=== PATIENT | male | born 1995 | race Two or more races ===

== ENCOUNTER 2017-11-02 11:18 | Emergency (ER) | payer MEDICAID ==
--- NOTE | 2017-11-02 11:35 | EDPHY ---
H & P Stated Complaint: R foot pain x couple wks because he's walking a lot,homeless, needs pain med Time Seen by Provider: 11/02/17 11:34 HPI/ROS: HPI: This is a 22-year-old male who presents with Chief Complaint: R foot pain x couple wks because he's walking a lot,homeless, needs pain med Location: Right great toe Quality: Burning Pain Duration: Mobile of weeks Signs and Symptoms: No bleeding, no radiation, no numbness, no weakness, no tingling, no incontinence, no decreased range of motion, no swelling, + pain Timing: Daily Severity: Moderate Context: Patient reports that 2 years ago he was using IV heroin accidentally stepped on a needle which cause gangrene subsequent amputation of his toe. He since today with complaints of burning pain that is worse at night for the last several weeks. He reports that he is homeless, wears converse shoes, and recently walk from [place] 25 miles with his brother. He denies any fever/ drainage/skin color changes. He does report that the skin with amputation is is a little bit moist. Denies paresthesias/weakness. No primary care provider. Reports that he is drug free at this time. Modifying Factors: None Comment: ROS: see HPI Constitutional: No fever, no chills, no weight loss Eyes: No blurred vision Respiratory: No shortness of breath, no cough Cardiovascular: No chest pain Gastrointestinal: No nausea, no vomiting no diarrhea Genitourinary: No dysuria Extremities: No myalgias Neurologic: No weakness, no numbness Skin: No rashes Hematologic: No bruising, no bleeding MEDICAL/SURGICAL/SOCIAL HISTORY: Medical history: Rhabdomyolysis, past hx IV drug abuse Surgical history: Right big toe amputation Social history: Homeless. Support system of brother. CONSTITUTIONAL: Pleasant and cooperative young adult male, awake and alert, no obvious distress HEENT: Atraumatic and normocephalic. NECK: supple, no midline tenderness, flexion 45 degrees, extension 45 degrees, right and left lateral flexion 45 degrees. No meningismus. Cardiovascular: Normal S1/S2, regular rate, regular rhythm, without murmur rub or gallop. PULMONARY/CHEST: Symmetrical and nontender. no crepitus. Clear to auscultation bilaterally. Good air movement. No accessory muscle usage. ABDOMEN: Soft, nondistended, nontender, no ecchymosis. PELVIC: no pain with rocking; bilateral hips flexion 125 degrees, extension 30 degrees, with no pain internal rotation and no pain external rotation. BACK: No midline tenderness, no paraspinous spasm, deep tendon reflexes 2/2, no pain with straight leg raise EXTREMITIES: 2/2 pulses, strength 5/5, 5th toe amputation; skin is well- approximated with Santiago mild macerations; no discharge/erythema/warmth. DIP/PIP/ MCP flexion/extension intact with good light touch sensation. no deformities, no clubbing, no cyanosis or edema. NEUROLOGICAL: no focal neuro deficits. GCS 15. Light touch sensation intact. SKIN: Warm and dry, no erythema. no rash. Good capillary refill. Source: Patient Exam Limitations: No limitations - Personal History Current Tetanus Diphtheria and Acellular Pertussis (TDAP): Yes - Medical/Surgical History Other PMH: Amputation R big toe. rhabdo. past hx IV drug abuse - Social History Smoking Status: Never smoked Constitutional: Initial Vital Signs Temperature (C) 37.6 C 11/02/17 11:20 Heart Rate 77 11/02/17 11:20 Respiratory Rate 16 11/02/17 11:20 Blood Pressure 135/78 H 11/02/17 11:20 O2 Sat (%) 96 11/02/17 11:20 O2 Delivery Mode Room Air Allergies/Adverse Reactions: heparin Allergy (Severe, Verified 11/02/17 11:23) Anaphylaxis morphine Allergy (Severe, Verified 11/02/17 11:23) Anaphylaxis Home Medications: Medication Instructions Recorded Cephalexin [Keflex (*)] 500 mg PO TID #21 cap 11/02/17 Gabapentin [Neurontin 300 MG (*)] 300 mg PO HS #12 cap 11/02/17 Medical Decision Making ED Course/Re-evaluation: Local wound care provided; area clean with mild soap and water; patted dry; clean sterile dressing, Coban applied. Given Gabapentin as well as script for Keflex secondary to skin maceration; homelessness; risk for infection. Advised to establish care with primary care provider at [facility]. No signs of neurovascular compromise/tenting of skin/compartment syndrome/ extremities and joints examined above and below area of concern and are neurovascularly intact/cellulitis/abscess/gangrene/candidiasis. This patient was seen under the supervision of my secondary supervising physician. I evaluated care for this patient independently. Differential Diagnosis: Differential diagnosis includes but is not limited to phantom pain, drug- seeking behavior, peripheral neuropathy, cellulitis, skin breakdown. - Data Points Medications Given: Discontinued Medications Gabapentin (Neurontin) 300 mg PO EDNOW ONE Stop: 11/02/17 11:51 Last Admin: 11/02/17 11:53 Dose: 300 mg Departure - Departure Disposition: Home, Routine, Self-Care Clinical Impression: History of amputation of great toe, Maceration of skin Condition: Good Instructions: Peripheral Neuropathy (ED) Additional Instructions: Keep the dressing dry and in place for 48 hours. After 48 hours, you may remove the dressing; wash the site daily with mild soap and water; then pat dry; apply topical antibiotic ointment and clean sterile dressing. Take Tylenol 650 mg every 4 hours and/or Ibuprofen 600 mg every 8 hours with food as needed for pain. Take Gabapentin at bedtime for nerve pain. Wear proper fitting shoes when walking long distance. Establish care at [facility]. Referrals: [facility],. [Clinic] - As per Instructions Prescriptions: Cephalexin [Keflex (*)] 500 mg PO TID #21 cap Gabapentin [Neurontin 300 MG (*)] 300 mg PO HS #12 cap
[2017-11-02] MEDS ORDERED: GABAPENTIN 300 MG CAP PO ONE (11:50)
[2017-11-02] MEDS ORDERED: GABAPENTIN 300 MG CAP ONE (11:50)
[2017-11-02 12:17] VITALS: BP 128/78; PULSE 78; RESP 18; TEMP 98.6; O2SAT 95
== END 2017-11-02 12:24 | disposition home or self-care (01) ==
DX: T69.021A Immersion foot, right foot, initial encounter (principal); Z89.411 Acquired absence of right great toe; X31.XXXA Exposure to excessive natural cold, initial encounter

== ENCOUNTER 2017-11-07 14:55 | Inpatient (IN) | payer MEDICAID ==
[2017-11-07] MEDS ORDERED: GADOBUTROL 10 ML VIAL IVP ONE (16:51)
[2017-11-07 17:12] LABS: PLATELET COUNT 429 10^3/uL (150-400)
--- NOTE | 2017-11-07 17:17 | EDPHY ---
H & P Smoking Status: Current some day smoker Time Seen by Provider: 11/07/17 15:37 HPI/ROS: CHIEF COMPLAINT: Right foot pain. HISTORY OF PRESENT ILLNESS: 22-year-old male presents to the emergency department with concerns about ongoing pain in his right foot. He has a history of amputation in the right great toe 3 or 4 years ago. He has had ongoing pain for years in his right foot. He apparently walked a long ways from [place] to [place] and developed a soft tissue infection. He was seen in the emergency department on 11/02/2017 and started on Keflex. He took the antibiotic as prescribed. He now has an open wound that has been present there for the last week or so. He believes his tetanus shot is current. Denies any other trauma or injury. ROS: Denies fever, chills, pain in his right ankle or calf. (FernandoElif Lizette) Past Medical/Surgical History: Schizophrenia, substance abuse, rhabdomyolysis, amputation right great toe 4 years ago (YanirareynaElif M) Social History: Homeless (Urmila Kingrina Lizette) Physical Exam: On examination patient has amputation of the right great toe noted. There is an open wound at the very distal aspect of the right foot overlying the 1st MTP joint. Nontender to palpate. No drainage noted. There is no surrounding redness or lymphangitis. The other toes do not appear affected. He has full range of motion of his ankle. Patient has overall decreased sensation with light touch to the right foot. Strong dorsalis pedis pulse on the dorsal aspect of the right foot. (Urmila Kingrina Lizette) Constitutional: Initial Vital Signs Heart Rate 88 11/07/17 15:01 Respiratory Rate 16 11/07/17 15:01 Blood Pressure 126/76 H 11/07/17 15:01 O2 Sat (%) 97 11/07/17 15:01 O2 Delivery Mode Room Air Allergies/Adverse Reactions: heparin Allergy (Severe, Verified 11/02/17 11:23) Anaphylaxis morphine Allergy (Severe, Verified 11/02/17 11:23) Anaphylaxis Home Medications: Medication Instructions Recorded Gabapentin [Neurontin 300 MG (*)] 300 mg PO HS #12 cap 11/02/17 Cyanocobalamin [Vitamin B12 (*)] 2,000 mcg PO HS 11/07/17 Hext-3 Fatty Acids [Fish Oil 1000 2,000 mg PO HS 11/07/17 mg (*)] MDM/Departure - MDM Imaging: I viewed and interpreted images myself - MDM Medications Given: Acetaminophen (Tylenol) 650 mg PO Q4HRS PRN PRN Reason: Pain, Mild/Fever, Can Take PO Stop: 05/06/18 19:28 Last Admin: 11/08/17 18:07 Dose: 650 mg Gabapentin (Neurontin) 300 mg PO HS ALLI Stop: 05/06/18 20:59 Last Admin: 11/08/17 19:59 Dose: 300 mg Ibuprofen (Motrin) 400 mg PO Q4HRS PRN PRN Reason: Pain, Inflammatory Stop: 05/06/18 19:28 Last Admin: 11/08/17 19:58 Dose: 400 mg Discontinued Medications Lorazepam (Ativan) 1 mg PO ONCE ONE Stop: 11/08/17 18:20 Last Admin: 11/08/17 18:25 Dose: 1 mg ED Course/Re-evaluation: I took over care of this patient at 5:00 p.m.. We were awaiting the results of an MRI of the foot to evaluate for osteomyelitis. 6:45 p.m., results of MRI as noted above discussed with the patient. Need for IV antibiotics and admission discussed. Hospitalist paged. 7:00 p.m., spoke with Dr. Wendie Dorsey of the hospitalist service. Case discussed with her in detail. She accepts the patient for admission. She will consult with Infectious Disease prior to administration of IV antibiotics. ( Tena Foote) 22-year-old homeless male presents to the emergency department with ongoing pain in his right foot. He is status post amputation. He does have an open wound at the very distal aspect at the 1st MTP joint. I was concerned about possible osteomyelitis. X-ray was obtained which revealed possible osteomyelitis in the 2nd metatarsal head. MRI of the right foot has been ordered and is pending. Case was discussed with Dr. Tena Foote, secondary supervising physician, who will assume care of this patient. MRI is pending. (Elif King) - Depart Disposition: [facility] Clinical Impression: Osteomyelitis of right foot Qualifiers: Osteomyelitis type: unspecified type Qualified Code(s): M86.9 - Osteomyelitis, unspecified Condition: Good
[2017-11-07] MEDS ORDERED: ONDANSETRON DISINTEGRATING 4 MG TAB PO PRN (19:29)
[2017-11-07] MEDS ORDERED: ONDANSETRON 4 MG/2 ML VIAL IVP PRN (19:29)
[2017-11-07] MEDS ORDERED: D5W 250 ML IV ONE (19:32)
[2017-11-07] MEDS: IBUPROFEN 200 MG TAB PO PRN (20:16)
[2017-11-07] MEDS: GABAPENTIN 300 MG CAP PO SCH (20:16)
--- NOTE | 2017-11-07 20:45 | GHP ---
[f rep st] HISTORY AND PHYSICAL DATE OF ADMISSION: 11/07/2017 CHIEF COMPLAINT: Right foot pain. HISTORY OF PRESENT ILLNESS: The patient is a 22-year-old homeless man with a history of previous stroke in the setting of IV drug abuse and schizophrenia, who presents to the emergency department complaining of right foot pain. He states his pain started after he had a stroke 4 years ago. He believes his stroke was related to IV drug abuse. He is originally from [place], but has been homeless for some time and states he has been walking for the past 2 weeks from [place] to arrive in [place] for assistance. He describes the pain in his right foot as burning in sensation. The pain is worse after walking for long periods of time. He denies fevers or chills. He denies chest pain or shortness of breath. He has no headache, vision changes, abdominal pain, or changes in his bowel or bladder habits. He has a history of prior right toe amputation related to IV drug abuse. He states he stepped on a needle and got an infection which he ignored and ultimately led to amputation. Since that time , he has developed a chronic ulcer on the base of his 1st metatarsal. He was seen in the emergency department November 02 and was started on Keflex. He denies purulence or redness. With respect to his history of history of schizophrenia, he is not under the care of a psychiatrist. He does endorse auditory and visual hallucinations which he says is a direct communication with God and supernatural creatures. Workup in the emergency department includes a foot x-ray which showed erosion of the distal head of the right 2nd metatarsal. Followup MRI was then performed which revealed findings suspicious for osteomyelitis involving the right 2nd and 5th metatarsals with possibly cellulitis and skin breakdown in the distal head of the 1st metatarsal in the region of the previous amputation. Given these findings, he is admitted to the hospital for further management. PAST MEDICAL HISTORY: 1. IV drug abuse, last use 5 months ago. 2. Marijuana abuse. 3. History of ischemic stroke. 4. Schizophrenia, not currently on medications. 5. Homelessness. 6. Amputation of the right great toe 4 years ago. MEDICATIONS: Gabapentin. ALLERGIES: Heparin and morphine. SOCIAL HISTORY: The patient is homeless. He has been staying in churches but was unable to secure a roof over his head last night and states he had a rough night on the streets. He denies alcohol or tobacco use. He uses marijuana regularly. He has a history of IV drug abuse, but states his last IV drug use was 5 months ago. He acknowledges a history of schizophrenia and is not currently under the care of a psychiatrist. FAMILY HISTORY: His mom had breast cancer. REVIEW OF SYSTEMS: A 10-point review of systems was performed and is negative except as per HPI. OBJECTIVE: VITAL SIGNS: Temperature is 36.8, blood pressure 118/62, heart rate 81, respiratory rate 18, he is 97% on room air. GENERAL: Patient is awake , alert and oriented, a bit disheveled with poor hygiene, in no acute distress. HEENT: Head is atraumatic, normocephalic. Pupils equal, round, react to light. Extraocular movements intact. Oropharynx is clear. Mucous membranes are moist. NECK: Supple. There is no JVD. HEART: Regular rate and rhythm without murmur. LUNGS: Clear to auscultation bilaterally. ABDOMEN: Soft, nondistended, nontender with normoactive bowel sounds. EXTREMITIES: Without edema. His right great toe has been amputated. There is a small subcentimeter open ulceration over the base of this amputation without purulence or surrounding erythema. He has tenderness to palpation over all of his metatarsals and does not localize his pain to the 1st, 2nd, or 5th metatarsal. 2+ dorsalis pedis pulses are detected. Extremities are otherwise warm and well perfused. LABORATORY DATA: CBC reveals a white blood cell count of 9.9, platelets are 429. Basic metabolic panel is remarkable for a sodium of 146, glucose is 65. CRP is 6.1. Electrolytes are otherwise normal. Creatinine is normal at 0.7. Right foot x-ray showed erosive changes at the distal head of the right 2nd metatarsal and previous amputation of the right 1st toe. Right foot MRI shows findings suspicious for osteomyelitis involving the right 2nd and 5th metatarsals with edema and enhancement noted. There is no abscess. There is also edema enhancement noted in the soft tissues over the amputation of the 1st toe with a break in the skin noted and findings suggestive of cellulitis on imaging. ASSESSMENT AND PLAN: The patient is a 22-year-old male with history of intravenous drug abuse, previous stroke and right great toe amputation, who presents to the emergency department with right foot pain. He is admitted to the hospital due to concern for osteomyelitis. # Possible osteomyelitis of the right 2nd and 5th metatarsals. S/P amputation of right 1st metatarsal. There is no associated cellulitis on exam. He is afebrile with a relatively normal white blood cell count and no elevation in his CRP. I suspect this is a chronic process. I have requested infectious disease consultation and will defer antibiotics until he has been evaluated by Infectious Disease. Once we have their opinion, we can decide whether or not to involve Podiatry for possible bone biopsy for organism-directed therapy versus oral antibiotics such as doxycycline. Repeat a CBC and CRP in the morning. # Toe ulcer. Base of 1st metatarsal, no purulence or associated erythema. Wound care. # History of intravenous drug abuse. Check a urine drug screen. He denies recent intravenous drug use in the past 5 months. I do not detect a heart murmur. # Schizophrenia. The patient is currently stable, though he does endorse oriental orthodox fixations and intermittent hallucinations. He denies active hallucinations, homicidality or suicidality. He is not under the care of a psychiatrist. Since he is presenting quite stable with relatively appropriate interaction, I will defer antipsychotics at this time. Case management consultation is requested for resource counseling and to try to help him engage in outpatient mental health services. # History of stroke. The details of this are unclear, though per his history, this was related to intravenous drug use, possibly vasospasm. He is neurologically intact. # Code status: Patient is full code. # Deep venous thrombosis prophylaxis. Patient is low risk. DISPOSITION: The patient is admitted to observation status pending results of infectious disease opinion. He may be a candidate for discharge on oral antibiotics. If further evaluation or interventions are planned, we will need to change it to inpatient. /[id number]/MODL MTDD
[2017-11-08 04:51] LABS: PLATELET COUNT 370 10^3/uL (150-400)
--- NOTE | 2017-11-08 08:54 | WOCRNPDOC ---
WOCRN Advanced Assessment Note - Skin Integrity Problem, Advanced Assess Right First metatarsal Head Ulcer Dressing Type: Open to Air Exudate Amount: None Fernanda Wound Tissue: Calloused Wound Bed Color: Red Wound Bed Constitution: Granulation Tissue (100%) Site Measurement - Head-to-Toe Length X Width X Depth (cm): 0.4x1x0.2 Skin Integrity Problem Comment: No fernanda wound erythema. Wound not painful on the outside to palpation but per patient is painful "on inside". Recommend antimicrobial wound gel and foam border dressing. Wound care will sign off. Rachel ASH in room.
[2017-11-08] MEDS: ACETAMINOPHEN 325 MG TAB PO PRN ×3 (10:03→22:32)
[2017-11-08] MEDS: IBUPROFEN 200 MG TAB PO PRN ×2 (12:39→19:58)
--- NOTE | 2017-11-08 14:12 | HOSPPROG ---
Hospitalist Progress Note Assessment/Plan: 22y male with c/o foot pain. First encounter, chart reviewed. D/W Dr Dahl and CM. #right foot pain -Not osteo per infectious disease -no abx now -pain is chronic #Toe fracture -likely causing pain #Homeless -CM involved #Hx of toe amputation -stable with ulcer #Schizophrenia -not on meds -get TLC eval -D/W CM #Hx CVA -stable #Toe ulcer -wound care #Dispo -likely in am -await TLC eval with outpatient resources -cont wound care Subjective: Still having some pain. Requesting social support. Objective: Vital Signs Temp Pulse Resp BP Pulse Ox 36.7 C 71 16 139/89 H 97 11/08/17 11:44 11/08/17 11:44 11/08/17 11:44 11/08/17 11:44 11/08/17 11:44 Laboratory Results 11/08/17 04:15 11/08/17 04:15 - Physical Exam Constitutional: no apparent distress, appears nourished, uncomfortable Eyes: PERRL, anicteric sclera, EOMI Ears, Nose, Mouth, Throat: moist mucous membranes, hearing normal, ears appear normal Cardiovascular: regular rate and rhythym, No JVD, No tachycardia Respiratory: no respiratory distress, no rales or rhonchi, clear to auscultation Gastrointestinal: normoactive bowel sounds, No tenderness, No ascites Skin: warm, erythema, pressure ulcer Musculoskeletal: full muscle strength, joint tenderness, pain with ROM Neurologic: AAOx3 Psychiatric: anxious, poor insight, poor judgement, poor memory ICD10 Worksheet Patient Problems: Problems Problem Status Onset Osteomyelitis of right foot Acute
--- NOTE | 2017-11-08 16:51 | GCON ---
[f rep st] CONSULTATION INFECTIOUS DISEASES CONSULTATION DATE OF CONSULTATION: 11/08/2017 REFERRING PHYSICIAN: Wendie Dorsey MD REASON FOR CONSULTATION: Possible osteomyelitis of the right foot. HISTORY OF PRESENT ILLNESS: Patient is a 22-year-old homeless male, with a past medical history of s chizophrenia, who I am asked to see in consultation for possible osteomyelitis of the right foot. John orta describes having a compartment syndrome and rhabdomyolysis of the right lower extremity approxi mately 4 years ago. He ultimately required amputation of the right great toe. Subsequently, he has complained of chronic pain in the right foot. The pain is most significant with walking and weight b earing. It is less prominent when he does not bear weight. Recently, he decided to relocate from [facility] to [place], given poor social circumstances. He describes walking from [place] to [place]. He h as not had any drainage from his foot. He does have a small ulceration on the skin overlying the ranulfo or amputation site. He does not have fever, chills, or night sweats. He has not had other constitut ional symptoms. He does not feel acutely ill. He was seen in the emergency department on 11/02/2017 , at which point in time he was prescribed cephalexin for skin maceration. He did not fill this pres cription. He presented yesterday to the emergency department due to persistent foot pain that was in terfering with his ability to function. He has not noted any erythema. He does not note any active injection drug use. Based on his foot pain, an x-ray was performed which showed erosion affecting th e distal head of the right 2nd metatarsal, raising question of osteomyelitis. Subsequently, an MRI o f the foot was performed which showed edema and enhancement of the distal shaft of the 2nd metatarsal , as well as the mid to distal shaft of the 5th metatarsal, with concern for osteomyelitis. No absce sses were noted. The 1st metatarsal underlying prior amputation did not show any edema or inflammato ry change. Patient has been observed off antibiotic therapy subsequently. Laboratory testing reveal ed a normal C-reactive protein. Given the above findings and concern for osteomyelitis radiographica lly, I am now asked to assist in his ongoing management. PAST MEDICAL HISTORY: Rhabdomyolysis, injection drug use, schizophrenia. PAST SURGICAL HISTORY: Right great toe amputation, tonsillectomy. CURRENT MEDICATIONS: Neurontin 300 mg p.o. q.h.s., Motrin as needed. ALLERGIES: Heparin and morphine. SOCIAL HISTORY: Patient smokes a few cigarettes intermittently. No significant alcohol intake. Pas t history of IV heroin use. Notes that he has not used for 5-6 months. He does use marijuana. FAMILY HISTORY: Mother with breast cancer. REVIEW OF SYSTEMS: Outside that noted in the HPI, remainder of 10-system review is unremarkable. PHYSICAL EXAMINATION: VITAL SIGNS: Temperature 36.7, heart rate 63, respiratory rate 14, blood pres sure 138/83, oxygen saturation 95% on room air. GENERAL: Patient is well nourished, well developed, in no acute distress. He appears nontoxic. HEENT: There is no scleral icterus, conjunctival injec tion, or conjunctival petechiae. Oropharynx shows moist mucous membranes with dentition being in soila r repair. There is no nasal discharge. There is no tenderness over the sinuses. NECK: Supple with out palpable lymphadenopathy. There is no palpable thyromegaly. CHEST: Clear to auscultation bilat erally without adventitious sounds. The respiratory effort is normal. CARDIOVASCULAR: Regular rate and rhythm without murmurs, gallops, or rubs. ABDOMEN: Soft, nontender, nondistended. There is no palpable organomegaly. Bowel sounds are present. MUSCULOSKELETAL: The right foot shows prior ampu tation of the great toe; there is a small ulceration present at this site without surrounding celluli tis or purulent discharge; scabbing is present; there are no ulcerations underlying the 2nd or 5th to e. There is no erythema or tenderness of the foot to palpation. Second toe shows mild edema. SKIN: Multiple tattoos present. No stigmata of endocarditis. The skin is warm and dry to touch. NEUROL OGIC: Patient is alert. Muscle tone and bulk are normal. Sensation is grossly intact. Cranial ner ves 2-12 are grossly intact. Psychiatric: Patient has tangential and delusional thought processes. LYMPHATICS: No cervical or supraclavicular nodes. No lymphangitis in the right lower extremity. LABORATORY DATA: White blood cell count 8.1, hematocrit 43.9, platelets 370, neutrophils 47%, lympho cytes 37%. Serum creatinine is 0.7, CRP is less than 5, ESR is 1. IMAGING: Imaging is reviewed further with Radiology today with impression that findings over 2nd met atarsal represent fracture and over 5th metatarsal may represent chondral cyst. IMPRESSION: 1. Right foot pain: MRI initially suggestive of possible osteomyelitis of 2nd and 5th toes. Howeve r, patient does not have any underlying skin ulcerations which typically would be the pathophysiology associated with osteomyelitis formation. On further review of MRI, the changes appear to have alter pauma explanations. Given these 2 findings cumulatively, do not think osteomyelitis is present or c ontributing to patient's foot pain. Some of his bony changes may be related to changes in gait post amputation as well. He does have small ulceration at the site of great toe amputation but no evidenc e of osteomyelitis on MRI in this region. This will require continued wound care for healing. If th is fails to fully close, he will be at risk for osteomyelitis of the residual bone underlying amputat ion site. RECOMMENDATIONS: 1. Agree with continued observation off antibiotics. 2. Continued wound care to prior amputation site. 3. Toe fracture: Management per hospitalist service. Thank you for this consultation. /[id number]/MODL
--- NOTE | 2017-11-08 17:21 | ASMTCMCOM ---
CM Note CM Note Notes: Pt came to [facility] from [place], admitted to hosp w/foot pain. Discussed w/Dr Dahl and Nicki Pollock'Rizwana today and they said osteomyelitis unlikely. Pt has hx of IV drug use and schizophrenia (not currently on meds) per H&P. [facility] eval ordered; spoke w/Fidelia from [facility] and since pt has [facility] need to see pt- she said we should call [facility] at [phone] tomorrow as soon as we know about a definite dc and then they will connect w/[facility] to come see pt. Pt will need community resources and possibly a reserved assisted bed if he wishes to stay there. CM will follow. Date Signed: 11/08/2017 05:20 PM Electronically Signed By:Sandhya Lynn RN
[2017-11-08] MEDS ORDERED: LORazepam 1 MG TAB PO ONE (18:19)
--- NOTE | 2017-11-08 19:37 | PDMN ---
Medical Necessity Medical necessity: change to IP; los>2mn for R foot pain, likely r/t toe fx, and w/ulcer of first metatarsal; comorbid schizophrenia, homelessness, hx toe amputation, CVA, IVDA; requires TLC eval, wound care and OP resources; per order and progress note 11/08/17
[2017-11-08] MEDS: GABAPENTIN 300 MG CAP PO SCH (19:59)
[2017-11-08] MEDS ORDERED: GABAPENTIN 300 MG CAP PO ONE (22:42)
[2017-11-09] MEDS: ACETAMINOPHEN 325 MG TAB PO PRN (08:58)
[2017-11-09] MEDS: IBUPROFEN 200 MG TAB PO PRN (10:52)
--- NOTE | 2017-11-09 14:57 | HOSPPROG ---
Hospitalist Progress Note Assessment/Plan: 22y male with c/o foot pain. #right foot pain -Not osteo per infectious disease -no abx now -pain is chronic #Toe fracture -likely causing pain #Homeless -CM involved #Hx of toe amputation -stable with ulcer #Schizophrenia -not on meds -needs mental health eval -D/W CM #Hx CVA -stable #Toe ulcer -wound care #Dispo -medically stable -await mental health eval with outpatient resources -cont wound care Subjective: Feeling well. Wants resources. Objective: Vital Signs Temp Pulse Resp BP Pulse Ox 36.7 C 73 16 137/82 H 97 11/09/17 11:21 11/09/17 11:21 11/09/17 11:21 11/09/17 11:21 11/09/17 11:21 11/08/17 11/09/17 11/10/17 05:59 05:59 05:59 Intake Total 950 Balance 950 - Physical Exam Constitutional: appears nourished, not in pain Eyes: PERRL, anicteric sclera Ears, Nose, Mouth, Throat: moist mucous membranes, hearing normal Cardiovascular: regular rate and rhythym, No JVD Respiratory: no respiratory distress, clear to auscultation Gastrointestinal: No tenderness, No ascites Skin: warm, normal color Musculoskeletal: normal joint ROM, no joint effusions Psychiatric: anxious, poor insight, poor judgement, poor memory, No interacting appropriately, No thought process linear, No suicidal ideation ICD10 Worksheet Patient Problems: Problems Problem Status Onset Osteomyelitis of right foot Acute
[2017-11-09 15:57] VITALS: BP 147/94; PULSE 80; RESP 12; TEMP 98.6; O2SAT 96
--- NOTE | 2017-11-09 17:07 | ASMTCMCOM ---
CM Note CM Note Notes: Patient assessed by [facility] and declined services. The architectural renderer did not think he qualified for inpatient admission. I gave him a bus pass and reserved a half-way bed for him. Patient had a Med 9 form that he wanted hospitalist to sign and I informed her of this request. Date Signed: 11/09/2017 05:06 PM Electronically Signed By:Elisabet Rosales RN
--- NOTE | 2017-11-09 18:27 | GDS ---
[f rep st] DISCHARGE SUMMARY DISCHARGE DIAGNOSES: 1. Foot pain. 2. Schizophrenia. 3. Toe fracture. 4. Homelessness. 5. History of cerebrovascular accident. 6. Toe ulcer. CONSULTATIONS: Infectious Disease. HOSPITAL COURSE: The patient is a 22-year-old male who presented to the emergency room with complain ts of foot pain. He was evaluated during this hospitalization with an MRI of his foot. This was ini tially thought to possibly demonstrate osteomyelitis. After further evaluation by Dr. Dahl of Infect ious Disease, it was felt that the patient did not actually suffer from osteomyelitis, and this is a chronic deformation of the patient's bone with a history of amputation and an acute fracture. The pa tient was not treated with antibiotics. He showed no signs of active infection, and has no further n eed to be in the hospital setting. He was evaluated by [facility] for further medi cation management and recommendations. He has deferred all resources offered to him, and is felt by [facility] to be safe to be discharged from the hospital. I have reviewed his disp osition with the case investigator. He will be discharged to the residential. Resources have been offered to him at the time of disposition. He is refusing all medications and any followup in the outpatient s etting. There are no pending studies I spent greater than 35 minutes in the care, coordination, and management of this patient's disposition. FOLLOWUP: He has been recommended to follow up with [facility], and has been offer ed resources, as well as [facility]. MEDICATIONS: There are no discharge medications. /[id number]/MODL
== END 2017-11-09 18:48 | disposition home or self-care (01) | DRG 563 ==
LOC: INTOOBSV 19:07 → F3N 20:05 → OBSVTOIN 11-08 19:16
PROVIDERS: ADMIT Hospitalist; ATTEND Hospitalist
DX: S92.591A Other fracture of right lesser toe(s), initial encounter for closed fracture (principal); L97.319 Non-pressure chronic ulcer of right ankle with unspecified severity; M95.9 Acquired deformity of musculoskeletal system, unspecified; F20.9 Schizophrenia, unspecified; Z59.0 Homelessness; Z89.421 Acquired absence of other right toe(s); Z86.73 Personal history of transient ischemic attack (TIA), and cerebral infarction without residual deficits
CPT/HCPCS: 80307; A9585; G0378; G0480

== ENCOUNTER 2017-12-05 10:45 | Emergency (ER) | payer MEDICAID ==
[2017-12-05 11:27] VITALS: BP 144/85
--- NOTE | 2017-12-05 16:09 | EDPHY ---
H & P Smoking Status: Current some day smoker Time Seen by Provider: 12/05/17 12:48 HPI/ROS: CHIEF COMPLAINT: Right foot pain HISTORY OF PRESENT ILLNESS: 22-year-old homeless male presents to the emergency department complaining of ongoing right foot pain. The patient has been seen in the emergency department admitted to the hospital for the same issue. He has had osteomyelitis in the past and had amputation of his right great toe. He continues to have ongoing pain associated with this. He denies any new trauma or injury. He states that he is homeless and has been walking around on his foot a lot. He denies any fevers or chills. Denies pain in his ankle or his calf. No chest pain or difficulty breathing. Denies any new or open weeping wounds. The patient states that that when the pain becomes bad, he becomes depressed and feels suicidal. He does not feel suicidal now. He does not have a plan. He would like a "safe place to sleep". He has not followed up with wound Care Clinic as instructed from his last hospitalization last month. REVIEW OF SYSTEMS: Constitutional: No fever, no chills. Eyes: No double or blurry vision. ENT: No sore throat. Respiratory: No cough, no shortness of breath. Cardiac: No chest pain. Gastrointestinal: No abdominal pain, vomiting or diarrhea. Genitourinary: No dysuria. Musculoskeletal: No neck or back pain. Skin: No rashes. Neurological: No headache. (Elif King) Past Medical/Surgical History: Schizophrenia, osteomyelitis right foot with amputation to the right great toe, chronic right foot pain (Fernando,Elif M) Social History: Homeless (Elif King M) Physical Exam: General Appearance: Alert, no distress. Eyes: Pupils equal and round. Extraocular motions are all intact. ENT: Mouth: Mucous membranes moist. Respiratory: No wheezing, rhonchi, or rales, lungs are clear to auscultation. Cardiovascular: Regular rate and rhythm. Gastrointestinal: Abdomen is soft and nontender, no masses, no rebound or guarding, bowel sounds normal. Neurological: Alert and oriented x 3, cranial nerves II through XII grossly intact Skin: Warm and dry, no rashes. Musculoskeletal: Nontender to palpate along the cervical, thoracic or lumbar spine. Neck is supple. Extremities: The patient has very dry feet. He has amputation noted to the right great toe at the MCP joint. He has no open weeping wounds. No open ulcerative lesions. No redness. No lymphangitis. No lesions noted to the other toes. Psychiatric: Patient is oriented X 3, there is no agitation. (FernandoElif M) Constitutional: Initial Vital Signs Temperature (C) 36.7 C 12/05/17 11:24 Heart Rate 70 12/05/17 11:24 Respiratory Rate 16 12/05/17 11:24 Blood Pressure 144/85 H 12/05/17 11:24 O2 Sat (%) 98 12/05/17 11:24 O2 Delivery Mode Room Air Allergies/Adverse Reactions: heparin Allergy (Severe, Verified 12/05/17 11:23) Anaphylaxis morphine Allergy (Severe, Verified 12/05/17 11:23) Anaphylaxis Home Medications: Medication Instructions Recorded Gabapentin [Neurontin 300 MG (*)] 300 mg PO HS #12 cap 11/02/17 Cyanocobalamin [Vitamin B12 (*)] 2,000 mcg PO HS 11/07/17 Acra-3 Fatty Acids [Fish Oil 1000 2,000 mg PO HS 11/07/17 mg (*)] Acetaminophen [Tylenol 325mg (*)] 650 mg PO Q4HRS PRN tab 11/09/17 Ibuprofen [Motrin (*)] 400 mg PO Q4HRS PRN tab 11/09/17 Percocet 5-325 mg Tablet 12/05/17 Zyprexa 12/05/17 Medical Decision Making ED Course/Re-evaluation: 22-year-old homeless male presents to the emergency department with pain in his right foot. I reviewed the patient's notes from his past admission specifically from the infectious disease provider, Dr. Dewayne Dahl. Dr. Dewayne Dahl stated that because the patient does not have skin changes or ulcerative lesions associated with the findings of eroded bone on his most recent MRI, he did not think that antibiotics were indicated. He did not think the patient had osteomyelitis. Evaluated the patient's foot today I do not see any ulcerative lesions or open weeping wounds. I do not think antibiotics are indicated. I do not think repeat x-rays indicated. The patient is requesting some place safe to sleep. The binder caser has arranged for him to stay at the longterm [facility]. He was given a Tom boot and crutches. He will be discharged from the emergency department. 5:00 p.m.: The patient will be discharged to the longterm. Apparently he was reluctant to leave and was threatening. He will be escorted out by security. This was discussed with Dr. Fagan, secondary supervising physician, who did not directly evaluate the patient. (Elif King) The patient was evaluated and managed by the physician wet process assistant head miller. I have reviewed this chart and I agree with the findings and plan of care as documented , as indicated by my signature. I am the secondary supervising physician. ( Leia Chang) Differential Diagnosis: Including but not limited to osteomyelitis, chronic pain, situational depression , substance abuse, cellulitis (FernandoElif Bauer) Departure - Departure Disposition: Home, Routine, Self-Care Clinical Impression: History of amputation of right great toe Condition: Good Instructions: Arthralgia (ED), Toe Amputation (DC) Additional Instructions: You have no evidence of acute infection in her foot. I do not think you need antibiotics. You should have close follow-up with a primary care provider. You have been but provided a walking boot for comfort as well as crutches. Return if you develop fever, increasing pain or swelling, or if you feel worse in any way. Referrals: May Wilson MD [Medical Doctor] - As per Instructions (On-call surgeon) [facility],. [Clinic] - As per Instructions
--- NOTE | 2017-12-05 19:54 | ASMTCMCOM ---
CM Note CM Note Notes: Pt presented to the ED through triage for SI related to foot pain and being homeless. Pt was seen voluntarily and deemed appropriate for discharge. This CM was requested to ensure patient was aware of outpatient follow-up options, homeless resources, and any other assistance available to patient (although pt has been offered multiple resources, wound care clinic follow up, a reserved bed at care home, bus passes, etc. in the past --- See 11/08 and 11/09/17 CM Notes, and provider's DC Summary from 11/09/17). Pt moved to [place] from [place]. Pt states he has no friends or family in the area but then admitted to having a brother, Larry Fournier ([phone]) but said he didn't live close by and didn't want to contact him. When asked how patient is able to pay for a cell phone (pt's cell #[phone]) pt said a family member who lives in [place] pays for it. This CM asked if patient would be interested in returning to [place] where he might have more support and pt responded "I don't have any support there. All of my family are into drugs and I don't want anything to do with that." This CM spoke with patient and he said he completed Coordinated Entry and was [facility] to [facility]. This CM called [facility] Beater Engineer Helper ([phone]) and spoke with DANE Smith, who said patient did complete the CE in October and was referred to [facility] but never actually enrolled in their services. Luis states because of this, patient would not be allowed to stay at the [facility] care home [facility]. This CM called [facility], left a voicemail [facility] but asked that a staff member call back and confirm pt is allowed to stay there. Received a call and voicemail from staff at [facility] and they said patient is allowed to stay there and will reserve the bed for him. This CM went to update patient and offered to arrange a Medicaid cab for him to get there. Pt would not engage in conversation and kept using profanities and saying "well then what do I do tomorrow?!" This CM said that [facility]'s Homeless Outreach RN, Sierra, will be at the care home from 8-10am and he should check in with her to get a follow-up appt at [facility]. Pt stated this would not work but was unable to give a reason why. This CM also said that staff at [facility] then might be able to provide him a bus pass to then get to [facility] and complete the enrollment process, etc. Pt became argumentative, using profanities. Ultimately pt refused to cooperate with the discharge process and plan and had to be escorted off the premises. Patient carried his large backpack and ambulated without assistance out of the ED. CM available for further assistance if needed. Date Signed: 12/05/2017 07:54 PM Electronically Signed By:Radha Hurt RN
--- NOTE | 2017-12-05 19:57 | ASDISCHSUM ---
Discharge Information Plan Status:Homeless/Intermediate Medically Cleared to Leave: Discharge Date:12/05/2017 06:15 PM D/C Disposition:Streets (Homeless) ADT D/C Disposition:Home, Routine, Self-Care Projected Discharge Date:12/05/2017 06:15 PM Transportation at D/C:Self Discharge Delay Reason: Follow-Up Date:12/05/2017 06:15 PM Discharge Slot: Final Diagnosis: Placement Information Patient Contact Information Contact Name:JANINAHUONG Relationship: Address: Home Phone: Work Phone: City: Alternate Phone: State/Zip Code: Email: Financial Information Financial Class:Medicaid Primary Plan Desc:MEDICAID HEALTH FIRST [employer] LITHOGRAPH PRESS OPERATOR Primary Plan Number:[id number] Secondary Plan Desc: Secondary Plan Number: Assessment Information [facility] CM Progress Note CM Note CM Note Notes: Pt presented to the ED through triage for SI related to foot pain and being homeless. Pt was seen voluntarily and deemed appropriate for discharge. This CM was requested to ensure patient was aware of outpatient follow-up options, homeless resources, and any other assistance available to patient (although pt has been offered multiple resources, wound care clinic follow up, a reserved bed at snf, bus passes, etc. in the past --- See 11/08 and 11/09/17 CM Notes, and provider's DC Summary from 11/09/17). Pt moved to [place] from [place]. Pt states he has no friends or family in the area but then admitted to having a brother, Larry Fournier ([phone]) but said he didn't live close by and didn't want to contact him. When asked how patient is able to pay for a cell phone (pt's cell #[phone]) pt said a family member who lives in [place] pays for it. This CM asked if patient would be interested in returning to [place] where he might have more support and pt responded "I don't have any support there. All of my family are into drugs and I don't want anything to do with that." This CM spoke with patient and he said he completed Coordinated Entry and was referred to [facility]. This CM called [facility] CM Civil Draftsman ([phone]) and spoke with DANE Smith, who said patient did complete the CE in October and was referred to [facility] but never actually enrolled in their services. Luis states because of this, patient would not be allowed to stay at the [facility] snf [facility]. This CM called [facility], left a voicemail reserving one of the beds for the pt tonight but asked that a staff member call back and confirm pt is allowed to stay there. Received a call and voicemail from staff at [facility] and they said patient is allowed to stay there and will reserve the bed for him. This CM went to update patient and offered to arrange a Medicaid cab for him to get there. Pt would not engage in conversation and kept using profanities and saying "well then what do I do tomorrow?!" This CM said that [facility]'s Homeless Outreach RN, Sierra, will be at the snf from 8-10am and he should check in with her to get a follow-up appt at [facility]. Pt stated this would not work but was unable to give a reason why. This CM also said that staff at [facility] then might be able to provide him a bus pass to then get to [facility] and complete the enrollment process, etc. Pt became argumentative, using profanities. Ultimately pt refused to cooperate with the discharge process and plan and had to be escorted off the premises. Patient carried his large backpack and ambulated without assistance out of the ED. CM available for further assistance if needed. Date Signed: 12/05/2017 07:54 PM Electronically Signed By:Radha Hurt RN Intervention Information Intervention Type:Intermediate Date of Service:12/05/2017 07:55 PM Patient Type:Emergency Room Staff Member:NILSA Hurt [place] Hours:0.5 Discipline:Bead Machine Operator Severity: Comment:[facility] bed
== END 2017-12-05 18:15 | disposition home or self-care (01) ==
DX: Z89.411 Acquired absence of right great toe (principal); F17.200 Nicotine dependence, unspecified, uncomplicated
CPT/HCPCS: L4386

== ENCOUNTER 2019-01-14 20:22 | Emergency (ER) | payer MEDICAID, OTHER ==
[2019-01-14 20:28] VITALS: BP 125/81
[2019-01-14 21:53] LABS: PLATELET COUNT 362 10^3/uL (150-400)
--- NOTE | 2019-01-14 22:13 | EDPHY ---
H & P Stated Complaint: ABD PAIN, DIARRHEA SINCE TUES [employer]E [employer] [place] [employer] Time Seen by Provider: 01/14/19 20:46 HPI/ROS: Chief complaint: Abdominal pain History of present illness: This is a 23-year-old male who presents to the emergency department for evaluation of abdominal pain. Patient reports the onset of symptoms approximately 4 days ago. He states prior to the onset of symptoms he ate 1 lb of uncooked cameron beans at 1 sitting. Since then he has had increasing abdominal cramping, bloating and diarrhea. He denies any blood in the diarrhea. He denies other potential precipitating factors. He denies alleviating factors. He did have some nausea with 1 episode of vomiting that has resolved. He denies other associated signs or symptoms. Review of systems: A 10 point review of systems was obtained and other than described above was negative - Personal History Current Tetanus Diphtheria and Acellular Pertussis (TDAP): Yes - Medical/Surgical History Hx Asthma: No Hx Chronic Respiratory Disease: No Hx Diabetes: No Hx Cardiac Disease: No Hx Renal Disease: No Hx Cirrhosis: No Hx Alcoholism: No Hx HIV/AIDS: No Hx Splenectomy or Spleen Trauma: No Other PMH: Amputation R big toe. rhabdo. past hx IV drug abuse. 2 strokes. kidney failure. TONSIL SX. schizophrenia - Social History Smoking Status: Former smoker - Physical Exam Exam: General Appearance: Alert, nontoxic. Eyes: Pupils equal and round no pallor or injection. ENT, Mouth: Mucous membranes moist. Respiratory: There are no retractions, lungs are clear to auscultation. Cardiovascular: Regular rate and rhythm. Gastrointestinal: Bowel sounds are normal. Abdomen soft, nondistended, nontender. Neurological: Alert. Strength and sensation intact. Skin: Warm and dry, no rashes. Musculoskeletal: Neck is supple non tender. Extremities are symmetrical, full range of motion. Psychiatric: Patient is oriented X 3, there is no agitation. Constitutional: Initial Vital Signs Temperature (C) 36.6 C 01/14/19 20:26 Heart Rate 71 01/14/19 20:26 Respiratory Rate 16 01/14/19 20:26 Blood Pressure 125/81 H 01/14/19 20:26 O2 Sat (%) 100 01/14/19 20:26 O2 Delivery Mode Room Air Allergies/Adverse Reactions: heparin Allergy (Severe, Verified 12/05/17 11:23) Anaphylaxis morphine Allergy (Severe, Verified 12/05/17 11:23) Anaphylaxis Home Medications: Medication Instructions Recorded NK [No Known Home Meds] 01/14/19 Medical Decision Making - Diagnostics Imaging Results: Imaging Impressions Abdomen X-Ray 01/14/19 21:14 Impression: No acute findings. Imaging: I viewed and interpreted images myself ED Course/Re-evaluation: Patient is discussed with my secondary supervising physician Dr. Suzy Rangel. Patient presents for abdominal discomfort with diarrhea. Patient is nontoxic. Afebrile and vital signs are stable. Blood studies are unremarkable including no leukocytosis. KUB unremarkable. I believe he is safe for discharge. Symptomatic care is discussed. Hydration. Gas-X. He is to follow up with a primary care doctor. Return precautions are given. Differential Diagnosis: Included but not limited to gastritis, gastroenteritis, constipation, bowel obstruction - Data Points Laboratory Results: Laboratory Results 01/14/19 21:45 01/14/19 21:45 01/14/19 01/14/19 21:45 21:45 WBC 9.01 10^3/uL 10^3/uL (3.80-9.50) RBC 5.73 10^6/uL 10^6/uL (4.40-6.38) Hgb 15.9 g/dL g/dL (13.7-17.5) Hct 48.8 % % (40.0-51.0) MCV 85.2 fL fL (81.5-99.8) MCH 27.7 pg L pg (27.9-34.1) MCHC 32.6 g/dL g/dL (32.4-36.7) RDW 14.8 % % (11.5-15.2) Plt Count 362 10^3/uL 10^3/uL (150-400) MPV 10.9 fL fL (8.7-11.7) Neut % (Auto) 70.6 % % (39.3-74.2) Lymph % (Auto) 16.3 % % (15.0-45.0) [place] % (Auto) 10.0 % % (4.5-13.0) Eos % (Auto) 2.0 % % (0.6-7.6) Baso % (Auto) 0.8 % % (0.3-1.7) Nucleat RBC Rel Count 0.0 % % (0.0-0.2) Absolute Neuts (auto) 6.36 10^3/uL 10^3/uL (1.70-6.50) Absolute Lymphs (auto) 1.47 10^3/uL 10^3/uL (1.00-3.00) Absolute Monos (auto) 0.90 10^3/uL H 10^3/uL (0.30-0.80) Absolute Eos (auto) 0.18 10^3/uL 10^3/uL (0.03-0.40) Absolute Basos (auto) 0.07 10^3/uL 10^3/uL (0.02-0.10) Absolute Nucleated RBC 0.00 10^3/uL 10^3/uL (0-0.01) Immature Gran % 0.3 % % (0.0-1.1) Immature Gran # 0.03 10^3/uL 10^3/uL (0.00-0.10) Sodium 137 mEq/L mEq/L (135-145) Potassium 3.7 mEq/L mEq/L (3.5-5.2) Chloride 102 mEq/L mEq/L (97-110) Carbon Dioxide 24 mEq/l mEq/l (22-31) Anion Gap 11 mEq/L mEq/L (6-14) BUN 18 mg/dL mg/dL (7-23) Creatinine 0.6 mg/dL L mg/dL (0.7-1.3) Estimated GFR > 60 Glucose 82 mg/dL mg/dL (70-100) Calcium 9.2 mg/dL mg/dL (8.5-10.4) Departure - Departure Disposition: Home, Routine, Self-Care Clinical Impression: Abdominal pain Qualifiers: Abdominal location: generalized Qualified Code(s): R10.84 - Generalized abdominal pain Diarrhea Qualifiers: Diarrhea type: unspecified type Qualified Code(s): R19.7 - Diarrhea, unspecified Condition: Good Instructions: Acute Diarrhea (ED), Acute Abdominal Pain (ED) Additional Instructions: Follow-up with a primary care doctor for continued evaluation and care Drink plenty of fluids to stay hydrated If symptoms worsen or new symptoms develop return to the emergency department for recheck Referrals: NONE *PRIMARY CARE P,. [Primary Care Provider] - As per Instructions [facility],. [Clinic] - As per Instructions Stand Alone Forms: Work Excuse
== END 2019-01-14 22:18 | disposition home or self-care (01) ==
DX: R10.84 Generalized abdominal pain (principal); R19.7 Diarrhea, unspecified